=== PATIENT | female | born 1955 | race Caucasian/White ===

== ENCOUNTER 2019-07-11 20:30 | Emergency (ER) | payer MEDICAID ==
[~2019-07-11] VITALS: Ht 162.6 cm; Wt 102.3 kg
[2019-07-11 20:53] VITALS: Ht 162.6 cm; Wt 102.3 kg
[2019-07-11] MEDS ORDERED: SINGULAIR10 MG PO (20:54)
[2019-07-11] MEDS ORDERED: ALBUTEROL SULF8.5 GM INH (20:54)
[2019-07-11 22:39] VITALS: BP 152/82
== END 2019-07-11 22:39 | disposition home or self-care (01) ==
LOC: D.ER 20:30
DX: S09.90XA Unspecified injury of head, initial encounter (principal); W20.8XXA Other cause of strike by thrown, projected or falling object, initial encounter; Y93.89 Activity, other specified; Y92.89 Other specified places as the place of occurrence of the external cause

== ENCOUNTER 2019-08-07 19:09 | Emergency (ER) | payer MEDICAID ==
[~2019-08-07] VITALS: Ht 162.6 cm; Wt 104.5 kg
[~2019-08-07 19:09] MED LIST: ALBUTEROL SULF8.5 GM INH; SINGULAIR10 MG PO
[2019-08-07 19:14] VITALS: Ht 162.6 cm; Wt 104.5 kg
[2019-08-07] MEDS ORDERED: SINGULAIR10 MG PO (20:14)
[2019-08-07] MEDS ORDERED: ALBUTEROL SULF8.5 GM INH (20:14)
[2019-08-07] MEDS ORDERED: PREDNISONE20 MG PO (20:14)
[2019-08-07 20:39] VITALS: BP 139/69
== END 2019-08-07 20:39 | disposition home or self-care (01) ==
LOC: D.ER 19:09
DX: J45.909 Unspecified asthma, uncomplicated (principal); Z76.0 Encounter for issue of repeat prescription